=== PATIENT | female | born 1975 | race American Indian/Alaskan Native ===

== ENCOUNTER 2016-11-03 06:00 | Emergency (ER) | payer SELFPAY ==
[2016-11-03] MEDS ORDERED: MOTRIN PO ONE (09:29)
[2016-11-03] MEDS ORDERED: FIORICET PO ONE (09:29)
[2016-11-03] MEDS ORDERED: NORVASC PO ONE (09:32)
--- NOTE | 2016-11-03 09:33 | Emergency Department Report ---
ED Headache HPI - General Chief Complaint: Headache Stated Complaint: HEADACHE Time Seen by Provider: 11/03/16 09:17 Source: patient Exam Limitations: no limitations - History of Present Illness Initial Comments: PT states she started having sore throat and R earache 1 week ago. PT states she treated at home. PT states she has a hx of htn with ( 2 years ago ) and she went to a clinic for her headache and bp check. PT states she was told her bp was 167/101 and she was given RX of Norvasc for 3 days. PT states her pain subsided when she was on the medication. PT states the day after she ran out of Norvasc, her head began to hurt. PT states she was taking Motrin but not improving. PT states she has not taken anything today. Timing/Duration: 1 week, waxing and waning Quality: severe Head Injury Location: frontal, temporal Recent Head Trauma: no recent headache/trauma Modifying Factors: improves with: medication (PT states her pain decreased with Norvasc ) Associated Symptoms: facial pain, fever/chills (subjective fever ). denies: nausea/vomiting, nasal congestion, nasal drainage, sinus infection, weakness Allergies/Adverse Reactions: Allergies No Known Allergies Allergy (Unverified 11/03/16 06:51) Home Medications: Ambulatory Orders Amoxicillin 500 mg PO BID #20 capsule 11/03/16 Butalb/Acetamin/Caff 50-325-40 [Fioricet] 1 tab PO Q6HR PRN #12 tab 11/03/16 Ibuprofen [Motrin] 600 mg PO Q8H PRN #15 tablet 11/03/16 amLODIPine [Norvasc] 5 mg PO DAILY #14 tab 11/03/16 traMADol [Ultram] 50 mg PO Q6HR PRN #12 tablet 11/03/16 ED Review of Systems ROS: Stated complaint: HEADACHE Other details as noted in HPI Comment: All other systems reviewed and negative Constitutional: fever (subjective ), other (fatigue ). denies: chills, weakness Eyes: denies: eye pain ENT: ear pain, throat pain, dental pain (intermittent ). denies: congestion Respiratory: denies: cough Cardiovascular: denies: chest pain, syncope Gastrointestinal: denies: abdominal pain, nausea, vomiting Neurological: headache. denies: weakness, confusion, abnormal gait ED Past Medical Hx - Past Medical History Previous Medical History?: Yes Hx Hypertension: Yes (During ) Additional medical history: Bartholin Cyst x 2 - Surgical History Additional Surgical History: C section x 1 - Social History Smoking Status: Current Every Day Smoker - Medications Home Medications: Home Medications Medication Instructions Recorded Confirmed Last Taken Type Amoxicillin 500 mg PO BID #20 capsule 11/03/16 Unknown Rx Butalb/Acetamin/Caff 50-325-40 1 tab PO Q6HR PRN #12 tab 11/03/16 Unknown Rx [Fioricet] Ibuprofen [Motrin] 600 mg PO Q8H PRN #15 tablet 11/03/16 Unknown Rx amLODIPine [Norvasc] 5 mg PO DAILY #14 tab 11/03/16 Unknown Rx traMADol [Ultram] 50 mg PO Q6HR PRN #12 tablet 11/03/16 Unknown Rx ED Physical Exam - General Limitations: No Limitations General appearance: alert, in no apparent distress - Head Head exam: Present: atraumatic, normocephalic, normal inspection - Expanded Head Exam Expanded Head exam: Absent: laceration, abrasion, contusion, hematoma, racoon eyes, general tenderness, tenderness of temporal artery - Eye Eye exam: Present: normal appearance, PERRL, EOMI. Absent: conjunctival injection, nystagmus, periorbital swelling, periorbital tenderness - ENT ENT exam: Present: normal orophraynx, mucous membranes moist, TM's normal bilaterally, normal external ear exam - Expanded ENT Exam Expanded Mouth exam: Absent: drooling, trismus Teeth exam: Present: dental caries (multiple dental caries ). Absent: dental tenderness #, gingival enlargement Throat exam: Positive: normal inspection. Negative: tonsillar erythema, tonsillomegaly, tonsillar exudate, R peritonsillar mass, L peritonsillar mass - Neck Neck exam: Present: normal inspection, tenderness, full ROM, lymphadenopathy (R ant cervical ) - Respiratory Respiratory exam: Present: normal lung sounds bilaterally. Absent: respiratory distress, wheezes, rales, rhonchi, stridor, chest wall tenderness, accessory muscle use - Cardiovascular Cardiovascular Exam: Present: regular rate, normal rhythm, normal heart sounds - GI/Abdominal GI/Abdominal exam: Present: soft. Absent: distended, tenderness, guarding, rebound - Extremities Exam Extremities exam: Present: normal inspection, full ROM - Back Exam Back exam: Present: normal inspection, full ROM. Absent: tenderness, CVA tenderness (R), CVA tenderness (L), muscle spasm, paraspinal tenderness, vertebral tenderness - Neurological Exam Neurological exam: Present: alert, oriented X3, CN II-XII intact, normal gait - Expanded Neurological Exam Expanded Patient oriented to: Present: person, place, time Best Eye Response ([place]): (4) open spontaneously Best Motor Response ([place]): (6) obeys commands Best Verbal Response ([place]): (5) oriented [place] Total: 15 - Psychiatric Psychiatric exam: Present: normal affect, normal mood - Skin Skin exam: Present: warm, dry, intact, normal color ED Course Vital Signs 11/03/16 11/03/16 06:55 10:43 Temperature 98.2 F 98.7 F Pulse Rate 77 64 Respiratory 18 18 Rate Blood Pressure 138/87 Blood Pressure 162/92 [Left] O2 Sat by Pulse 100 100 Oximetry - Reevaluation(s) Reevaluation #1: 11/03/16 09:36 PT aware of plan of care. PT has no questions at this time. PT aware she will need to follow up with PCP for management of htn. At this time, pt's bp 155/101 Reevaluation #2: 11/03/16 11:01 PT states her pain has decreased from 10/10 to 5/10. PT still c/o R ear pain. PT aware no OM or OE appreciated on exam. PT aware it is possible that she is having referred pain for dental caries. PT aware she will need to follow up with PCP and dentist. PT has no questions at this time. Strict return precautions given. - Pulse Oximetry Interpretation Digit-Finger Initial Pulse Oximetry Readin Actions Taken: none ED Medical Decision Making - Differential Diagnosis om, dental abscess, htn, uri, sinusitis Critical Care Time: No Critical care attestation.: If time is entered above; I have spent that time in minutes in the direct care of this critically ill patient, excluding procedure time. ED Disposition Clinical Impression: Dental caries, Otalgia, right ear, Elevated blood pressure reading Headache Qualifiers: Headache type: unspecified Headache chronicity pattern: acute headache Intractability: not intractable Qualified Code(s): R51 - Headache Disposition: DC-01 TO HOME OR SELFCARE Is pt being admited?: No Does the pt Need Aspirin: No Condition: Stable Instructions: Dental Caries (ED), Acute Headache (ED), Chronic Hypertension (ED ), Earache (ED), DASH Eating Plan (ED), Low Sodium Diet (ED), Hypertension (ED) Additional Instructions: finish all antibiotics Follow up with PCP in 3-5 days for bp recheck Follow up with Dentist No driving or alcohol if you are needing to take Ultram for your pain Return to the ED if you develop facial swelling, fevers, chills, weakness or concerns Prescriptions: amLODIPine [Norvasc] 5 mg PO DAILY #14 tab Amoxicillin 500 mg PO BID #20 capsule Butalb/Acetamin/Caff 50-325-40 [Fioricet] 1 tab PO Q6HR PRN #12 tab PRN Reason: Headache Ibuprofen [Motrin] 600 mg PO Q8H PRN #15 tablet PRN Reason: Pain traMADol [Ultram] 50 mg PO Q6HR PRN #12 tablet PRN Reason: Pain Referrals: [facility] [Outside] - 3-5 Days OBINNA MARQUEZ MD [Staff Physician] - 3-5 Days PRIMARY CAREMD [Primary Care Provider] - 3-5 Days Forms: Work/School Release Form(ED) Time of Disposition: 11:04
[2016-11-03 10:45] VITALS: BP 162/92
== END 2016-11-03 11:14 | disposition home or self-care (01) ==
LOC: ED 06:00
DX: H92.01 Otalgia, right ear (principal); R51 Headache; K02.9 Dental caries, unspecified; I10 Essential (primary) hypertension; F17.210 Nicotine dependence, cigarettes, uncomplicated
CPT/HCPCS: 99282